=== PATIENT | female | born 1955 | race Caucasian/White ===

== ENCOUNTER 2016-08-07 09:09 | Emergency (ER) | payer BC, OTHER ==
[2016-08-07 09:56] LABS: BASOPHILS 0.4 % (0-2); EOSINOPHILS 1.4 % (0-7); HEMATOCRIT 37.1 % (36.0-48.0); HEMOGLOBIN 12.1 g/dL (12-16); IMMATURE GRANULOCYTES 2.9 % (0-5); LYMPHOCYTES 11.7 % (15-50); MCH 31.7 pg (26.0-34.0); MCHC 32.6 g/dL (31.0-37.0); MCV 97.1 fL (80.0-100.0); MEAN PLATELET VOLUME 10.9 fL (7.4-10.4); MONOCYTES 8.2 % (2-11); NEUTROPHILS 75.4 % (40-80); PLATELET COUNT 247 10x3/uL (130-400); RBC 3.82 10x6/uL (4.00-5.40); RDW 13.3 % (11.5-14.5); WBC 9.5 10x3/uL (4.8-10.8)
[2016-08-07 09:57] LABS: APPEARANCE CLOUDY (CLEAR); COLOR YELLOW (YELLOW)
[2016-08-07 09:58] LABS: BILIRUBIN NEGATIVE (NEGATIVE); GLUCOSE NEGATIVE (NEGATIVE); KETONE NEGATIVE (NEGATIVE); LEUKOCYTE ESTERASE 2+ (NEGATIVE); NITRITE NEGATIVE (NEGATIVE); PROTEIN 1+ mg/dL (NEGATIVE); SPECIFIC GRAVITY 1.015 (1.005-1.020); UROBILINOGEN NORMAL (NORMAL)
[2016-08-07 10:00] LABS: WHITE CELLS - URINE >50 /hpf (0-5)
[2016-08-07 10:01] LABS: BACTERIA MODERATE /hpf (NONE SEEN)
[2016-08-07 10:16] LABS: ALBUMIN 2.6 g/dL (3.4-5.0); ANION GAP 4.5 mmol/L (8-16); BILIRUBIN - TOTAL 0.35 mg/dL (0.2-1.3); CALCIUM 8.7 mg/dL (8.5-10.1); CARBON DIOXIDE 38.1 mmol/L (21.0-32.0); CREATININE - SERUM 1.3 mg/dL (0.6-1.3); POTASSIUM - SERUM 3.6 mmol/L (3.5-5.1); PROTEIN - SERUM 7.2 g/dL (6.4-8.2)
[2016-08-07 10:26] LABS: T4 THYROXIN - FREE 0.58 ng/dL (0.76-1.46); T4 THYROXINE 1.9 ug/dL (4.7-13.3); THYROID STIMULATING HORMONE 7.11 uIU/mL (0.36-3.74)
== END 2016-08-07 11:31 | disposition home or self-care (01) ==
LOC: D.ER 09:09
PROVIDERS: Emergency Medicine
DX: N39.0 Urinary tract infection, site not specified (principal); E03.9 Hypothyroidism, unspecified